=== PATIENT | male | born 1945 | race Caucasian/White ===

== ENCOUNTER 2017-12-12 18:49 | Observation (INO) ==
[2017-12-12 19:15] VITALS: TEMP 99.7
[2017-12-12] MEDS ORDERED: Sod Chloride 0.9% Inj 1,000 ML IV.SIG ONE (20:52)
[2017-12-12 21:19] LABS: Baso # (Auto) 0.1 th/mm3 (0.0-0.2); Baso % (Auto) 0.5 % (0.0-2.0); Eos # (Auto) 0.1 th/mm3 (0.0-0.4); Eos % (Auto) 0.6 % (0.0-4.0); Hematocrit 54.3 % (39.0-51.0); Hemoglobin 18.1 gm/dL (13.0-17.0); Lymph # (Auto) 1.6 th/mm3 (1.0-4.8); Lymph % (Auto) 11.5 % (9.0-44.0); Mean Corpuscular HGB Conc 33.3 % (32.0-36.0); Mean Corpuscular Hemoglobin 30.2 pg (27.0-34.0); Mean Corpuscular Volume 90.8 fL (80.0-100.0); Mean Platelet Volume 8.8 fL (7.0-11.0); Mono # (Auto) 0.2 th/mm3 (0.0-0.9); Mono % (Auto) 1.4 % (0.0-8.0); Neut # (Auto) 11.7 th/mm3 (1.8-7.7); Platelet Count 266 th/mm3 (150-450); Red Blood Count 5.99 mil/mm3 (4.50-5.90); Red Cell Distribution Width 12.8 % (11.6-17.2); White Blood Count 13.7 th/mm3 (4.0-11.0)
[2017-12-12 21:24] LABS: Chloride 112 meq/L (98-107); Sodium 141 meq/L (136-145)
[2017-12-12 21:27] LABS: Calcium 9.5 mg/dL (8.5-10.1)
[2017-12-12 21:28] LABS: Albumin 4.3 g/dL (3.4-5.0); Anion Gap 8 meq/L (5-15); Blood Urea Nitrogen 24 mg/dL (7-18); Carbon Dioxide 20.9 meq/L (21.0-32.0); Glucose,Random 146 mg/dL (74-106); Potassium 5.6 meq/L (3.5-5.1)
[2017-12-12 21:31] LABS: Alanine Aminotransferase 36 U/L (12-78); Aspartate Aminotransferase 57 U/L (15-37); Glomerular Filtration Rate 50 mL/min (>89)
[2017-12-12 21:33] LABS: Total Protein 8.9 g/dL (6.4-8.2)
[2017-12-12 21:34] LABS: Bilirubin,Urine Negative (Negative); Clarity,Urine Clear (Clear); Color,Urine Yellow (Yellw/Straw); Glucose,Urine (UA) Negative (Negative); Leukocyte Esterase,Urine Negative (Negative); Nitrite,Urine Negative (Negative); PH,Urine 5.5 (5.0-8.5); Specific Gravity,Urine Greater/Equal 1.030 (1.002-1.035); Urobilinogen,Urine 0.2 mg/dL (Less than 2)
[2017-12-12 21:34] LABS: Alkaline Phosphatase 47 U/L (45-117)
[2017-12-12 21:40] LABS: WBC,Urine 0-5 /hpf (0-5)
[2017-12-12] MEDS ORDERED: Sod Chloride 0.9% Inj 1,000 ML IV.SIG SCH (22:00)
[2017-12-12 22:21] LABS: Calcium 8.3 mg/dL (8.5-10.1); Carbon Dioxide 22.6 meq/L (21.0-32.0); Potassium 4.1 meq/L (3.5-5.1)
--- NOTE | 2017-12-12 23:01 | ED ---
HPI General Chief complaint: Nausea/Vomiting/Diarrhea Stated complaint: N/V x 3 hr Time Seen by Provider: 12/12/17 20:33 Source: patient Mode of arrival: ambulatory Limitations: no limitations History of Present Illness complaint: vomiting Onset (ago): hour(s) Description of Vomiting: watery and continuous Description of Diarrhea: none Associated Abdominal Pain: No Location of pain: diffuse Severity: moderate Relieving factors: none Exacerbating factors: eating Associated symptoms: denies other symptoms Related Data Home Medications Medication Instructions Recorded Confirmed amlodipine 5 mg PO DAILY 12/12/17 12/12/17 benazepril 10 mg PO DAILY 12/12/17 12/12/17 Allergies Allergy/AdvReac Type Severity Reaction Status Date / Time No Known Allergies Allergy Verified 12/12/17 20:01 Review of Systems ROS: all other systems reviewed are negative [facility] Medical History Medical History GERD (gastroesophageal reflux disease) (Acute) Hypertension (Acute) Surgical History Surgical History History of tonsillectomy (Acute) Hx of inguinal hernia surgery (Acute) Social History Social History Substance History: No History of Abuse Smoking Status: Never smoker How Often Do You Have a Drink Containing Alcohol: Monthly or less Recent Travel in [facility] within the Last 8 Weeks: No Recent Out of Country Travel within the Last 8 Weeks: No Immunization History Tetanus Immunization: >5 Years Hx Influenza Vaccine This Season: No Exam Narrative Exam Narrative: GENERAL: 72-year-old male well-nourished well-developed no acute distress SKIN: Focused skin assessment warm/dry. HEAD: Atraumatic. Normocephalic. EYES: Pupils equal and round. No scleral icterus. No injection or drainage. ENT: No nasal bleeding or discharge. Mucous membranes pink and moist. NECK: Trachea midline. No JVD. CARDIOVASCULAR: Regular rate and rhythm. No murmur appreciated. RESPIRATORY: No accessory muscle use. Clear to auscultation. Breath sounds equal bilaterally. GASTROINTESTINAL: Abdomen soft, non-tender, nondistended. Hepatic and splenic margins not palpable. MUSCULOSKELETAL: No obvious deformities. No clubbing. No cyanosis. No edema. NEUROLOGICAL: Awake and alert. No obvious cranial nerve deficits. Motor grossly within normal limits. Normal speech. PSYCHIATRIC: Appropriate mood and affect; insight and judgment normal. Course Initial Documented Vital Signs Temperature 99.7 F H 12/12/17 19:14 Pulse Rate 75 12/12/17 19:14 Respiratory Rate 18 12/12/17 19:14 Blood Pressure 174/99 H 12/12/17 19:14 Pulse Oximetry 96 12/12/17 19:14 Last Documented Vital Signs Temperature 99.7 F H 12/12/17 19:14 Pulse Rate 71 12/13/17 00:23 Respiratory Rate 16 12/13/17 00:23 Blood Pressure 185/99 H 12/13/17 00:23 Pulse Oximetry 98 12/13/17 00:23 Medical Decision Making MDM Narrative Medical decision making narrative: Patient has been in the ER for about 2 hours and a half. He has been expectorating/vomiting his saliva since. He received Zofran and IV fluids. He states that in the past he has had episodes were after eating he starts vomiting and is unable to tolerate his secretions and that sometimes lasts about 20 minutes. He reports in the past compliance with Prevacid was beneficial however long-term noncompliance reported until today. He has had no fever or diarrhea. Patient was at [employer] today and after eating 1 or 2 bites of turkey started vomiting. He then vomited for about an hour straight and since then has been unable to tolerate his own secretions. As then this is happened previously. We see mild prerenal azotemia today. Hospitalist was called at 10:55 PM. After speaking with the patient for about 5 minutes he has persistently expectorated his own saliva here. He is otherwise in no distress. Admission for IV hydration, IV Protonix and evaluation by GI considered appropriate for this patient cannot swallow water he does not have chest pain abdominal pain shortness of breath or constitutional symptomatic complaint. Medical Screen Exam Complete: Yes Emergency Medical Condition: Yes Lab Data Lab results reviewed: Yes I reviewed the patient's lab results. Lab results narrative: Repeat potassium was 4.1 Result diagrams: 12/12/17 21:15 12/12/17 22:05 Lab Results 12/12/17 12/12/17 12/12/17 Range/Units 21:15 21:15 21:25 CBC w Diff Auto diff final WBC 13.7 H (4.0-11.0) th/mm3 RBC 5.99 H (4.50-5.90) mil/mm3 Hgb 18.1 H (13.0-17.0) gm/dL Hct 54.3 H (39.0-51.0) % MCV 90.8 (80.0-100.0) fL MCH 30.2 (27.0-34.0) pg MCHC 33.3 (32.0-36.0) % RDW 12.8 (11.6-17.2) % Plt Count 266 (150-450) th/mm3 MPV 8.8 (7.0-11.0) fL Neut % (Auto) 86.0 H (16.0-70.0) % Lymph % (Auto) 11.5 (9.0-44.0) % [place] % (Auto) 1.4 (0.0-8.0) % Eos % (Auto) 0.6 (0.0-4.0) % Baso % (Auto) 0.5 (0.0-2.0) % Neut # (Auto) 11.7 H (1.8-7.7) th/mm3 Lymph # (Auto) 1.6 (1.0-4.8) th/mm3 [place] # (Auto) 0.2 (0.0-0.9) th/mm3 Eos # (Auto) 0.1 (0.0-0.4) th/mm3 Baso # (Auto) 0.1 (0.0-0.2) th/mm3 WBC Differential . Differential Comment . Sodium 141 (136-145) meq/L Potassium 5.6 H (3.5-5.1) meq/L Chloride 112 H (98-107) meq/L Carbon Dioxide 20.9 L (21.0-32.0) meq/L Anion Gap 8 (5-15) meq/L BUN 24 H (7-18) mg/dL Creatinine 1.40 H (0.60-1.30) mg/dL Estimated GFR 50 L (>89) mL/min Random Glucose 146 H (74-106) mg/dL Calcium 9.5 (8.5-10.1) mg/dL Total Bilirubin 1.1 H (0.2-1.0) mg/dL AST 57 H (15-37) U/L ALT 36 (12-78) U/L Alkaline Phosphatase 47 (45-117) U/L Total Protein 8.9 H (6.4-8.2) g/dL Albumin 4.3 (3.4-5.0) g/dL Urine Color Yellow (Yellw/Straw) Urine Clarity Clear (Clear) Urine pH 5.5 (5.0-8.5) Ur Specific [place] Greater/equal 1.030 (1.002-1.035) Urine Protein 100 H (Neg-Trace) mg/dL Urine Glucose (UA) Negative (Negative) mg/dL Urine Ketones Negative (Negative) mg/dL Urine Occult Blood Small H (Negative) Urine Nitrate Negative (Negative) Urine Bilirubin Negative (Negative) Urine Urobilinogen 0.2 (Less than 2) mg/dL Ur Leukocyte Esterase Negative (Negative) Urine RBC 4-15 H (0-3) /hpf Urine WBC 0-5 (0-5) /hpf Ur Squamous Epith Cells 6-10 H (0-5) /hpf Ur Microscopic Review Microscopic reviewed 12/12/17 Range/Units 22:05 CBC w Diff WBC (4.0-11.0) th/mm3 RBC (4.50-5.90) mil/mm3 Hgb (13.0-17.0) gm/dL Hct (39.0-51.0) % MCV (80.0-100.0) fL MCH (27.0-34.0) pg MCHC (32.0-36.0) % RDW (11.6-17.2) % Plt Count (150-450) th/mm3 MPV (7.0-11.0) fL Neut % (Auto) (16.0-70.0) % Lymph % (Auto) (9.0-44.0) % [place] % (Auto) (0.0-8.0) % Eos % (Auto) (0.0-4.0) % Baso % (Auto) (0.0-2.0) % Neut # (Auto) (1.8-7.7) th/mm3 Lymph # (Auto) (1.0-4.8) th/mm3 [place] # (Auto) (0.0-0.9) th/mm3 Eos # (Auto) (0.0-0.4) th/mm3 Baso # (Auto) (0.0-0.2) th/mm3 WBC Differential Differential Comment Sodium 145 (136-145) meq/L Potassium 4.1 D (3.5-5.1) meq/L Chloride 116 H (98-107) meq/L Carbon Dioxide 22.6 (21.0-32.0) meq/L Anion Gap 6 (5-15) meq/L BUN 23 H (7-18) mg/dL Creatinine 1.40 H (0.60-1.30) mg/dL Estimated GFR 50 L (>89) mL/min Random Glucose 173 H (74-106) mg/dL Calcium 8.3 L D (8.5-10.1) mg/dL Total Bilirubin (0.2-1.0) mg/dL AST (15-37) U/L ALT (12-78) U/L Alkaline Phosphatase (45-117) U/L Total Protein (6.4-8.2) g/dL Albumin (3.4-5.0) g/dL Urine Color (Yellw/Straw) Urine Clarity (Clear) Urine pH (5.0-8.5) Ur Specific [place] (1.002-1.035) Urine Protein (Neg-Trace) mg/dL Urine Glucose (UA) (Negative) mg/dL Urine Ketones (Negative) mg/dL Urine Occult Blood (Negative) Urine Nitrate (Negative) Urine Bilirubin (Negative) Urine Urobilinogen (Less than 2) mg/dL Ur Leukocyte Esterase (Negative) Urine RBC (0-3) /hpf Urine WBC (0-5) /hpf Ur Squamous Epith Cells (0-5) /hpf Ur Microscopic Review Discharge Plan Discharge Disposition Patient Disposition: 30 Still Patient Discharge Order Discharge Orders: AMA Discharge (Routine); Ordered 12/13/17 Ordered By: Staci Martin Physicians Team ED Provider: Andrea Mcknight Primary Care Provider: Primary Care Nohemy Walton Attending Provider: Staci Martin Other Providers: Miguel Biggs Status ED Status: Left Department Discharge Information Discharge Date/Time: 12/13/17 00:28
[2017-12-12] MEDS ORDERED: Pantoprazole Inj 40 MG Vial IV.PUSH ONE (23:10)
[2017-12-12] MEDS ORDERED: Bisacodyl 10 MG Supp RECTAL PRN (23:13)
[2017-12-12] MEDS ORDERED: Morphine Sulfate Inj 2 MG/ML Vial IV.PUSH PRN (23:14)
[2017-12-12] MEDS ORDERED: Sod Chloride 0.9% Inj 1,000 ML IV.CONT SCH (23:15)
[2017-12-13 00:25] VITALS: BP 185/99; PULSE 71; RESP 16; O2SAT 98
[2017-12-13] MEDS ORDERED: Pantoprazole Inj 40 MG Vial IV.PUSH SCH (09:00)
== END 2017-12-16 00:30 | disposition left against medical advice (07) ==
LOC: PHED 18:49 → PHEDA 18:49
PROVIDERS: ADMIT Hospitalist; ATTEND Hospitalist